=== PATIENT | male | born 1935 | race Caucasian/White ===

== ENCOUNTER 2018-07-01 17:14 | Observation (INO) ==
[2018-07-01] MEDS ORDERED: Morphine Inj 4 MG/ML Vial IV.PUSH ONE (17:47)
--- NOTE | 2018-07-01 17:52 | ED ---
HPI General Chief complaint: Urogenital-Male Stated complaint: Evac/Medical Check Up Time Seen by Provider: 07/01/18 17:47 History of Present Illness HPI Narrative: This is an 82-year-old male it was sent over from [facility] [place] [facility] with persistent hematuria. The patient is status post TURP and bladder stone removal today. The patient is currently not on any blood thinners. He reports that during a previous bladder stone removal, he is had bleeding in the past that required continuous bladder irrigation. He denies any fevers, chills. He does report suprapubic discomfort. The patient also has a history of memory loss according to and patient. He currently takes blood pressure medication and Donepezil. He reports the pain as a 4-5 out of 10 on the pain scale. There is no radiation. There is some nausea with no vomiting. Related Data Allergies Allergy/AdvReac Type Severity Reaction Status Date / Time adhesive Allergy Severe SKIN Unverified 06/16/17 21:43 SENSITIVITY bacitracin Allergy Severe rash Unverified 06/16/17 21:43 gramicidin D Allergy Severe rash Unverified 06/16/17 21:43 neomycin Allergy Severe rash Unverified 06/16/17 21:43 polymyxin B Allergy Severe rash Unverified 06/16/17 21:43 cat dander Allergy Intermediate EYES Unverified 06/16/17 21:43 SWOLLEN, WATERY, NASAL CONGESTION Review of Systems ROS: all other systems reviewed are negative Constitutional Denies chills and Denies fever(s) Eyes Reports system reviewed and no additional complaints, except as docu ENT Reports system reviewed and no additional complaints, except as docu Cardiovascular Denies chest pain and Denies dyspnea Respiratory Denies cough and Denies dyspnea Gastrointestinal Denies abdominal pain, Reports nausea and Denies vomiting Genitourinary Reports hematuria and Reports other (Suprapubic discomfort) Musculoskeletal Denies back pain, Denies numbness and Denies tingling Neurologic Reports system reviewed and no additional complaints, except as docu and Reports other (History of memory loss) Hematologic/Lymphatic Denies easy bleeding, Denies easy bruising and Reports other (Did have previous hematuria with previous bladder stone removal.) [facility] Social History Social History Substance History: No History of Abuse Second Hand Smoke Exposure: No Smoking Status: Never smoker How Often Do You Have a Drink Containing Alcohol: Monthly or less Recent Travel in [facility] within the Last 8 Weeks: No Recent Out of Country Travel within the Last 8 Weeks: No Exam Narrative Exam Narrative: GENERAL: Well-developed well-nourished male in no acute respiratory distress. SKIN: Focused skin assessment warm/dry. HEAD: Atraumatic. Normocephalic. EYES: No scleral icterus. No injection or drainage. ENT: No nasal bleeding or discharge. Mucous membranes pink and moist. NECK: Trachea midline. Supple. CARDIOVASCULAR: Sinus bradycardia with a rate in the 50s.. No murmur appreciated. RESPIRATORY: No accessory muscle use. Clear to auscultation. Breath sounds equal bilaterally. GASTROINTESTINAL: Abdomen soft, nondistended. Patient has subjective suprapubic discomfort. There is no rebound or guarding. MUSCULOSKELETAL: No obvious deformities. No clubbing. No cyanosis. No edema. NEUROLOGICAL: Awake and mildly confused. No obvious cranial nerve deficits. Motor grossly within normal limits. Normal speech. Discharge Plan Discharge Disposition Patient Disposition: 30 Still Patient Discharge Details Diagnosis: Recurrent and persistent hematuria, S/P TURP (status post transurethral resection of prostate) Physicians Team ED Provider: Zachery Bruno Primary Care Provider: Go Gunter Attending Provider: Matteo Ibrahim Discharge Interventions Interventions: Vital Signs Last Done: 07/01/18 18:41 Status ED Status: Admitted Patient Medical Decision Making [facility] Narrative Medical decision making narrative: 82-year-old male status post TURP and bladder stone removal, presents here from the surgery center with persistent hematuria. The patient is currently on continuous bladder irrigation. He was sent here by Dr. Willis for admission. Patient's been continued on continuous bladder irrigation. He has been admitted to the [facility] hospitalist team. I spoke with Dr. Jax Ibrahim who admit the patient to his service. I also spoke with Dr. Florentin Mccartney with urology who apparently is covering after hours for Dr. Willis. He will see the patient in consultation. Medical Screen Exam Complete: Yes Emergency Medical Condition: Yes Differential Diagnosis Differential Diagnosis: Persistent hematuria versus cystitis versus bleeding dyscrasia versus postoperative bladder/prostate urethral bleeding
[2018-07-01 18:46] LABS: Baso % (Auto) 0.1 % (0.0-2.0); Hematocrit 43.3 % (39.0-51.0); Hemoglobin 14.6 gm/dL (13.0-17.0); Lymph # (Auto) 0.7 th/mm3 (1.0-4.8); Lymph % (Auto) 4.7 % (9.0-44.0); Mean Corpuscular HGB Conc 33.6 % (32.0-36.0); Mean Corpuscular Hemoglobin 31.2 pg (27.0-34.0); Mean Platelet Volume 7.8 fL (7.0-11.0); Mono # (Auto) 1.1 th/mm3 (0.0-0.9); Mono % (Auto) 7.4 % (0.0-8.0); Neut # (Auto) 13.3 th/mm3 (1.8-7.7); Neut % (Auto) 87.8 % (16.0-70.0); Platelet Count 170 th/mm3 (150-450); Red Blood Count 4.66 mil/mm3 (4.50-5.90); White Blood Count 15.2 th/mm3 (4.0-11.0)
[2018-07-01 18:54] LABS: Bacteria,Urine Occasional /hpf; Bilirubin,Urine Negative (Negative); Clarity,Urine Cloudy (Clear); Color,Urine Red (Yellw/Straw); Glucose,Urine (UA) 50 mg/dL (Negative); Leukocyte Esterase,Urine Negative (Negative); Nitrite,Urine Positive (Negative); Specific Gravity,Urine 1.004 (1.002-1.035)
[2018-07-01 18:55] LABS: Activated Partial Thrombo Time 23.3 sec (24.3-30.1); Prothrombin Time 10.3 sec (9.8-11.6)
[2018-07-01 19:11] LABS: Calcium 8.5 mg/dL (8.5-10.1); Carbon Dioxide 22.2 meq/L (21.0-32.0); Potassium 4.1 meq/L (3.5-5.1)
[2018-07-01] MEDS ORDERED: Bisacodyl 10 MG Supp RECTAL PRN (20:16)
[2018-07-01] MEDS: Sod Chloride 0.9% Inj 1,000 ML IV.CONT SCH (20:43)
--- NOTE | 2018-07-01 21:28 | P.HPIM ---
History of Present Illness Primary Care Physician: Go Gunter MD History of Present Illness: 82-year-old male with a history of mild dementia, hypertension, GERD, BPH with bladder stone who presents with persistent hematuria following TURP procedure performed this morning by urologist Dr Willis. Patient denies any pain. Denies any chest pain or shortness of breath. Denies any fevers or chills. He is alert and oriented 3. He says he has had some pain meds today and it has made him feel little "funny", would rather not get any more. 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 - Medical History Medical History: Medical History (Last Updated 07/01/18 @ 21:22 by Ronal Wang MD) BPH (benign prostatic hyperplasia) Dementia GERD (gastroesophageal reflux disease) Hiatal hernia Hypertension - Family History Family History: Family History (Last Updated 07/01/18 @ 21:22 by Ronal Wang MD) Father CHF (congestive heart failure) Mother CHF (congestive heart failure) - Tobacco History Second Hand Smoke Exposure: No Smoking Status: Never smoker - Alcohol History How Often Do You Have a Drink Containing Alcohol: Monthly or less - Substance Use History Substance History: No History of Abuse - Travel History Recent Travel in the [place] Within the Last 8 Weeks: No Recent Travel Out of the Country Within the Last 8 Weeks: No - Immunization History Tetanus Immunization: <5 Years Hx Influenza Vaccine This Season: Yes Medications and Allergies Active Medications: Active Medications Al Hydroxide/Mg Hydroxide (Milk Of Magnesia Liq) 30 ml PO Q12H PRN PRN Reason: Mild Constipation Bisacodyl (Dulcolax Supp) 10 mg RECTAL DAILY PRN PRN Reason: SEVERE CONSITIPATION Sodium Chloride (Ns Inj) 1,000 mls @ 65 mls/hr IV.CONT .[id number] BOUCHRA Last Admin: 07/01/18 20:43 Dose: 65 mls/hr Lactulose (Lactulose Liq) 30 ml PO DAILY PRN PRN Reason: SEVERE CONSITIPATION Sennosides (Senokot) 17.2 mg PO Q12H PRN PRN Reason: Moderate Constipation Allergies Allergy/AdvReac Type Severity Reaction Status Date / Time adhesive Allergy Severe SKIN Unverified 06/16/17 21:43 SENSITIVITY bacitracin Allergy Severe rash Unverified 06/16/17 21:43 gramicidin D Allergy Severe rash Unverified 06/16/17 21:43 neomycin Allergy Severe rash Unverified 06/16/17 21:43 polymyxin B Allergy Severe rash Unverified 06/16/17 21:43 cat dander Allergy Intermediate EYES Unverified 06/16/17 21:43 SWOLLEN, WATERY, NASAL CONGESTION Home Medications Medication Instructions Recorded Confirmed Type donepezil 5 mg PO DAILY 07/01/18 07/01/18 History lisinopril 5 mg PO DAILY 07/01/18 07/01/18 History pantoprazole 40 mg PO HS 07/01/18 07/01/18 History tamsulosin 0.4 mg PO DAILY 07/01/18 07/01/18 History Exam Vital signs: Vital Signs 07/01/18 17:45 07/01/18 18:41 07/01/18 19:11 Temperature 98 F Pulse Rate 58 L 56 L 58 L Respiratory Rate 15 15 16 Blood Pressure 134/72 136/76 104/65 Pulse Oximetry 98 95 95 07/01/18 20:00 07/01/18 21:00 Temperature Pulse Rate 54 L 53 L Respiratory Rate 16 16 Blood Pressure 119/65 119/56 L Pulse Oximetry 95 95 Intake & Output 07/01/18 07/01/18 07/02/18 06:59 18:59 06:59 Weight 89.811 kg Other: Bladder Irrigation Fluid - Amount Instilled 3-way Urethral 1,800 Bladder Irrigation Fluid - Amount Drained 3-way Urethral 700 Narrative: GENERAL: Patient lying in bed. Appears comfortable. He is alert and oriented 3. SKIN: Warm and dry. HEAD: Atraumatic. Normocephalic. EYES: Pupils equal and round. No scleral icterus. No injection or drainage. ENT: No nasal bleeding or discharge. Mucous membranes pink and moist. NECK: Trachea midline. No JVD. CARDIOVASCULAR: Regular rate and rhythm. RESPIRATORY: No accessory muscle use. Clear to auscultation. Breath sounds equal bilaterally. GASTROINTESTINAL: Abdomen soft, non-tender, nondistended. Hepatic and splenic margins not palpable. MUSCULOSKELETAL: Extremities without clubbing, cyanosis, or edema. No obvious deformities. NEUROLOGICAL: Awake and alert. No obvious cranial nerve deficits. Motor grossly within normal limits. Five out of 5 muscle strength in the arms and legs. Normal speech. PSYCHIATRIC: Appropriate mood and affect; insight and judgment normal. Results - Labs CBC & Chem 7: 07/01/18 18:15 07/01/18 18:15 Labs: Short CBC 07/01/18 Range/Units 18:15 WBC 15.2 H (4.0-11.0) th/mm3 Hgb 14.6 (13.0-17.0) gm/dL Hct 43.3 (39.0-51.0) % Plt Count 170 (150-450) th/mm3 BMP 07/01/18 18:15 Sodium 136 Potassium 4.1 Chloride 105 Carbon Dioxide 22.2 BUN 22 H Creatinine 1.50 H Calcium 8.5 Urine 07/01/18 Range/Units 18:15 Urine Color Red (Yellw/Straw) Urine Clarity Cloudy H (Clear) Urine pH 6.0 (5.0-8.5) Ur Specific [place] 1.004 (1.002-1.035) Urine Protein 30 H (Neg-Trace) mg/dL Urine Glucose (UA) 50 (Negative) mg/dL Caprini VTE Risk Assessment Caprini VTE Risk Assessment: Moderate/High Risk (score >= 2) VTE Pharmacological Exception Reason: Hemorrhage Caprini Risk Assessment Model: Point Value = 1 Point Value = 2 Point Value = 3 Point Value = 5 Age 41-60 Minor surgery BMI > 25 kg/m2 Swollen legs Varicose veins or History of unexplained or recurrent spontaneous Oral contraceptives or hormone replacement Sepsis (< 1 month) Serious lung disease, including pneumonia (< 1 month) Abnormal pulmonary function Acute myocardial infarction Congestive heart failure (< 1 month) History of inflammatory bowel disease Medical patient at bed rest Age 61-74 Arthroscopic surgery Major open surgery (> 45 min) Laparoscopic surgery (> 45 min) Malignancy Confined to bed (> 72 hours) Immobilizing plaster cast Central venous access Age >= 75 History of VTE Family history of VTE Factor V Leiden Prothrombin [id number] Lupus anticoagulant Anticardiolipin antibodies Elevated serum homocysteine Heparin-induced thrombocytopenia Other congenital or acquired thrombophilia Stroke (< 1 month) Elective arthroplasty Hip, pelvis, or leg fracture Acute spinal cord injury (< 1 month) Prophylaxis Regimen: Total Risk Factor Score Risk Level Prophylaxis Regimen 0-1 Low Early ambulation 2 Moderate Order ONE of the following: *Sequential Compression Device (SCD) *Heparin 5000 units SQ BID 3-4 Higher Order ONE of the following medications: *Heparin 5000 units SQ TID *Enoxaparin/Lovenox 40 mg SQ daily (WT < 150 kg, CrCl > 30 mL/min) *Enoxaparin/Lovenox 30 mg SQ daily (WT < 150 kg, CrCl > 10-29 mL/min) *Enoxaparin/Lovenox 30 mg SQ BID (WT < 150 kg, CrCl > 30 mL/min) AND/OR *Sequential Compression Device (SCD) 5 or more Highest Order ONE of the following medications: *Heparin 5000 units SQ TID (Preferred with Epidurals) *Enoxaparin/Lovenox 40 mg SQ daily (WT < 150 kg, CrCl > 30 mL/min) *Enoxaparin/Lovenox 30 mg SQ daily (WT < 150 kg, CrCl > 10-29 mL/min) *Enoxaparin/Lovenox 30 mg SQ BID (WT < 150 kg, CrCl > 30 mL/min) AND *Sequential Compression Device (SCD) Assessment and Plan - Plan //Benign prostatic hyperplasia //Persistent hematuria following TURP -Continue Flomax. -Urology has been consulted. Continue on bladder irrigation. //Leukocytosis. //Possible UTI. White blood cells 15. Likely secondary to stress numerous red blood cells on urine, 12 white blood cells, positive bacteria. Will give dose of Rocephin. Follow-up on urine culture. //Dementia. Chronic. Continue home medication //Hypertension. Chronic. Blood pressure acceptable. Continue home medication and monitor. //GERD. Chronic. Continue PPI. Discussed Condition With: Patient, nurse, Dr. Ibrahim
[2018-07-02] MEDS: Lisinopril 5 MG Tablet PO SCH (08:48)
[2018-07-02] MEDS: Sod Chloride 0.9% Inj 1,000 ML IV.CONT SCH (11:56)
--- NOTE | 2018-07-02 12:10 | P.PN ---
Subjective Interval history: In bed says he feels better . Some blood at the catheter tip. Urine is orange in color. Complains of suprapubic pressure. Complaints of right sided back pain. No fever or chills. No n/v/d/c. No tachycardia. Says he can't sleep at night. Physical Exam Vital signs: Vital Signs 07/01/18 17:45 07/01/18 18:41 07/01/18 19:11 Temperature 98 F Pulse Rate 58 L 56 L 58 L Respiratory Rate 15 15 16 Blood Pressure 134/72 136/76 104/65 Pulse Oximetry 98 95 95 07/01/18 20:00 07/01/18 21:00 07/02/18 00:00 Temperature 97.2 F L Pulse Rate 54 L 53 L 57 L Respiratory Rate 16 16 18 Blood Pressure 119/65 119/56 L 116/61 Pulse Oximetry 95 95 97 07/02/18 04:00 07/02/18 08:00 Temperature 97.4 F L 97.2 F L Pulse Rate 60 61 Respiratory Rate 19 17 Blood Pressure 120/67 142/77 H Pulse Oximetry 96 97 Intake & Output 07/01/18 07/02/18 07/02/18 18:59 06:59 18:59 Intake Total 900 / 900 1000 / 1000 Output Total 900 / 900 3800 / 3800 Balance 0 / 0 -2800 / -2800 Weight 89.811 kg 90.5 kg Intake: IV 100 / 100 1000 / 1000 NS Inj 1,000 ML @ 65 mls/hr IV. 1000 / 1000 CONT .[id number] BOUCHRA Rx#:[id number] Rocephin Inj 1,000 MG In NS Inj 100 / 100 100 ML @ 200 mls/hr IV.SIG Q24H BOUCHRA Rx#:[id number] Oral 800 / 800 Output: Urine Amount (Catheter) 900 / 900 3800 / 3800 3-way Urethral 900 / 900 3800 / 3800 Other: Bladder Irrigation Fluid - Amount Instilled 3-way Urethral 6,900 600 Bladder Irrigation Fluid - Amount Drained 3-way Urethral 7,800 1,250 Date of Last Bowel Movement 07/01/18 07/01/18 Narrative: GENERAL: Patient lying in bed. Appears comfortable. He is alert and oriented 3. CARDIOVASCULAR: Regular rate and rhythm. RESPIRATORY: No accessory muscle use. Clear to auscultation. Breath sounds equal bilaterally. GASTROINTESTINAL: Abdomen soft, non-tender, nondistended. Hepatic and splenic margins not palpable. MUSCULOSKELETAL: Extremities without clubbing, cyanosis, or edema. No obvious deformities. : Urinary cath in place with orange urine, Blood at the tip of the catheter. NEUROLOGICAL: Awake and alert. No obvious cranial nerve deficits. Motor grossly within normal limits. Five out of 5 muscle strength in the arms and legs. Normal speech. PSYCHIATRIC: Appropriate mood and affect; insight and judgment normal. - Urinary Catheter Management 3-way Urethral Cath placed during this visit: yes Reason for continuing: Gross Hematuria Insertion date: 07/01/18 Results - Labs CBC & Chem 7: 07/01/18 18:15 07/01/18 18:15 Laboratory Results - last 24 hr 07/01/18 07/01/18 07/01/18 18:15 18:15 18:15 WBC 15.2 H RBC 4.66 Hgb 14.6 Hct 43.3 MCV 93.0 MCH 31.2 MCHC 33.6 RDW 13.0 Plt Count 170 MPV 7.8 Neut % (Auto) 87.8 H Lymph % (Auto) 4.7 L [place] % (Auto) 7.4 Eos % (Auto) 0.0 Baso % (Auto) 0.1 Neut # (Auto) 13.3 H Lymph # (Auto) 0.7 L [place] # (Auto) 1.1 H Eos # (Auto) 0.0 Baso # (Auto) 0.0 WBC Differential . Differential Comment Auto diff final PT 10.3 INR 1.0 APTT 23.3 L Sodium 136 Potassium 4.1 Chloride 105 Carbon Dioxide 22.2 Anion Gap 9 BUN 22 H Creatinine 1.50 H Estimated GFR 45 L Random Glucose 135 H Calcium 8.5 Urine Color Urine Clarity Urine pH Ur Specific [place] Urine Protein Urine Glucose (UA) Urine Ketones Urine Occult Blood Urine Nitrate Urine Bilirubin Urine Urobilinogen Ur Leukocyte Esterase Urine RBC Urine WBC Urine Bacteria Micro UA Comment Ur Microscopic Review Urine Culture Comments 07/01/18 18:15 WBC RBC Hgb Hct MCV MCH MCHC RDW Plt Count MPV Neut % (Auto) Lymph % (Auto) [place] % (Auto) Eos % (Auto) Baso % (Auto) Neut # (Auto) Lymph # (Auto) [place] # (Auto) Eos # (Auto) Baso # (Auto) WBC Differential Differential Comment PT INR APTT Sodium Potassium Chloride Carbon Dioxide Anion Gap BUN Creatinine Estimated GFR Random Glucose Calcium Urine Color Red Urine Clarity Cloudy H Urine pH 6.0 Ur Specific [place] 1.004 Urine Protein 30 H Urine Glucose (UA) 50 Urine Ketones Negative Urine Occult Blood Moderate H Urine Nitrate Positive H Urine Bilirubin Negative Urine Urobilinogen Less than 2 Ur Leukocyte Esterase Negative Urine RBC Urine WBC 12 H Urine Bacteria Occasional H Micro UA Comment Cath-culture ind Ur Microscopic Review Not Reportable Urine Culture Comments Cath-cult indicated Assessment and Plan - Plan Benign prostatic hyperplasia Persistent hematuria following TURP -Continue Flomax. -Urology has been consulted. Continue on bladder irrigation. - Monitor urine OP - Continue Rocephin IV abx Leukocytosis. Possible UTI. White blood cells 15K on admission. Likely secondary to stress numerous red blood cells on urine, 12 white blood cells, positive bacteria. Continue IV abx Rocephin. Urine culture pending Dementia. Chronic. Continue home medication Hypertension. Chronic. Blood pressure acceptable. Continue home medication and monitor. GERD. Chronic. Continue PPI. Insomnia: start melatonin Discussed Condition With: Patient, nurse DC plan : when improves and cleared by urology
--- NOTE | 2018-07-02 12:52 | XR ---
EXAM DATE: 07/02/2018 12:49 PM EDT AGE/SEX: 82 years / Male INDICATIONS: Shortness of breath and right, lower chest pain. CLINICAL DATA: This is the patient's subsequent encounter. Patient reports that signs and symptoms h ave been present for 3 days and indicates a pain score of 3/10. MEDICAL/SURGICAL HISTORY: . Pulmonary thrombosis. Hiatal hernia. . Hernia repair. COMPARISON: No prior exams available for comparison. FINDINGS: Scattered bibasilar atelectasis and/or infiltrates are noted. The heart is normal. The pulmonary vasc ular pattern is normal. Mild degenerative changes and scoliosis of the thoracic spine are noted. CONCLUSION: Scattered bibasilar atelectasis and/or infiltrates. Electronically signed by: Oleksandr Lazcano MD 07/02/2018 12:51 PM EDT
--- NOTE | 2018-07-02 14:32 | P.CONURO ---
History of Present Illness Service: Urology Consult date: 07/02/18 Requesting Physician: Fina Hahn Reason for Consult: Hematuria post/op Primary Care Provider: Go Gunter MD Family Provider: Go Gunter MD History of Present Illness: 82y.o m s/p TURP yesterday by Dr Willis admitted to the hospital overnight due to hematuria and retention. He currently has 3 way hematuria garcia catheter and on CBI. Urine is clear light yellow color. He has no f/c/n/v, admits some back pain, possibly positional due to recent surgery. He has no other c/o Review of Systems All other systems reviewed negative except as stated in HPI [facility] - History History Provided By: Patient - Medical History Medical History: Medical History (Last Updated 07/01/18 @ 21:22 by Ronal Wang MD) BPH (benign prostatic hyperplasia) Dementia GERD (gastroesophageal reflux disease) Hiatal hernia Hypertension - Family History Family History: Family History (Last Updated 07/01/18 @ 21:22 by Ronal Wang MD) Father CHF (congestive heart failure) Mother CHF (congestive heart failure) - Tobacco History Second Hand Smoke Exposure: No Smoking Status: Never smoker - Alcohol History How Often Do You Have a Drink Containing Alcohol: Monthly or less - Substance Use History Substance History: No History of Abuse - Travel History Recent Travel in the [place] Within the Last 8 Weeks: No Recent Travel Out of the Country Within the Last 8 Weeks: No - Immunization History Tetanus Immunization: <5 Years Hx Influenza Vaccine This Season: Yes Medications and Allergies Active Medications: Active Medications Al Hydroxide/Mg Hydroxide (Milk Of Sraai Champagne) 30 ml PO Q12H PRN PRN Reason: Mild Constipation Bisacodyl (Dulcolax Supp) 10 mg RECTAL DAILY PRN PRN Reason: SEVERE CONSITIPATION Donepezil HCl (Aricept) 5 mg PO DAILY [facility] Last Admin: 07/02/18 08:48 Dose: 5 mg Sodium Chloride (Ns Inj) 1,000 mls @ 65 mls/hr IV.CONT .[id number] [facility] Last Infusion: 07/02/18 12:08 Dose: Infused Ceftriaxone Sodium 1,000 mg/ (Sodium Chloride) 100 mls @ 200 mls/hr IV.SIG Q24H [facility] Last Infusion: 07/02/18 02:53 Dose: Infused Lactulose (Lactulose Liq) 30 ml PO DAILY PRN PRN Reason: SEVERE CONSITIPATION Lisinopril (Prinivil) 5 mg PO DAILY [facility] Last Admin: 07/02/18 08:48 Dose: 5 mg Melatonin (Melatonin) 5 mg PO HS PRN PRN Reason: sleeping aid Pantoprazole Sodium (Protonix) 40 mg PO HS [facility] Sennosides (Senokot) 17.2 mg PO Q12H PRN PRN Reason: Moderate Constipation Tamsulosin HCl (Flomax) 0.4 mg PO DAILY [facility] Last Admin: 07/02/18 08:48 Dose: 0.4 mg Allergies Allergy/AdvReac Type Severity Reaction Status Date / Time adhesive Allergy Severe Rash, Verified 07/02/18 11:53 Localized bacitracin Allergy Severe rash Verified 07/02/18 11:53 gramicidin D Allergy Severe rash Verified 07/02/18 11:53 neomycin Allergy Severe rash Verified 07/02/18 11:53 polymyxin B Allergy Severe rash Verified 07/02/18 11:53 cat dander Allergy Intermediate EYES Verified 07/02/18 11:53 SWOLLEN, WATERY, NASAL CONGESTION Home Medications Medication Instructions Recorded Confirmed Type donepezil 5 mg PO DAILY 07/01/18 07/01/18 History lisinopril 5 mg PO DAILY 07/01/18 07/01/18 History pantoprazole 40 mg PO HS 07/01/18 07/01/18 History tamsulosin 0.4 mg PO DAILY 07/01/18 07/01/18 History Physical Exam Vital Signs - 24 hr 07/01/18 17:45 07/01/18 18:41 07/01/18 19:11 Temperature 98 F Pulse Rate 58 L 56 L 58 L Respiratory Rate 15 15 16 Blood Pressure 134/72 136/76 104/65 Pulse Oximetry 98 95 95 07/01/18 20:00 07/01/18 21:00 07/02/18 00:00 Temperature 97.2 F L Pulse Rate 54 L 53 L 57 L Respiratory Rate 16 16 18 Blood Pressure 119/65 119/56 L 116/61 Pulse Oximetry 95 95 97 07/02/18 04:00 07/02/18 08:00 07/02/18 12:00 Temperature 97.4 F L 97.2 F L 97.7 F Pulse Rate 60 61 63 Respiratory Rate 19 17 17 Blood Pressure 120/67 142/77 H 145/68 H Pulse Oximetry 96 97 97 Physical Exam: NAD RRR Clear lungs Abd soft NT Garcia is in place CBI running Laboratory Results - last 24 hr 07/01/18 07/01/18 07/01/18 18:15 18:15 18:15 WBC 15.2 H RBC 4.66 Hgb 14.6 Hct 43.3 MCV 93.0 MCH 31.2 MCHC 33.6 RDW 13.0 Plt Count 170 MPV 7.8 Neut % (Auto) 87.8 H Lymph % (Auto) 4.7 L [place] % (Auto) 7.4 Eos % (Auto) 0.0 Baso % (Auto) 0.1 Neut # (Auto) 13.3 H Lymph # (Auto) 0.7 L [place] # (Auto) 1.1 H Eos # (Auto) 0.0 Baso # (Auto) 0.0 WBC Differential . Differential Comment Auto diff final PT 10.3 INR 1.0 APTT 23.3 L Sodium 136 Potassium 4.1 Chloride 105 Carbon Dioxide 22.2 Anion Gap 9 BUN 22 H Creatinine 1.50 H Estimated GFR 45 L Random Glucose 135 H Calcium 8.5 Urine Color Urine Clarity Urine pH Ur Specific [place] Urine Protein Urine Glucose (UA) Urine Ketones Urine Occult Blood Urine Nitrate Urine Bilirubin Urine Urobilinogen Ur Leukocyte Esterase Urine RBC Urine WBC Urine Bacteria Micro UA Comment Ur Microscopic Review Urine Culture Comments 07/01/18 18:15 WBC RBC Hgb Hct MCV MCH MCHC RDW Plt Count MPV Neut % (Auto) Lymph % (Auto) [place] % (Auto) Eos % (Auto) Baso % (Auto) Neut # (Auto) Lymph # (Auto) [place] # (Auto) Eos # (Auto) Baso # (Auto) WBC Differential Differential Comment PT INR APTT Sodium Potassium Chloride Carbon Dioxide Anion Gap BUN Creatinine Estimated GFR Random Glucose Calcium Urine Color Red Urine Clarity Cloudy H Urine pH 6.0 Ur Specific [place] 1.004 Urine Protein 30 H Urine Glucose (UA) 50 Urine Ketones Negative Urine Occult Blood Moderate H Urine Nitrate Positive H Urine Bilirubin Negative Urine Urobilinogen Less than 2 Ur Leukocyte Esterase Negative Urine RBC Urine WBC 12 H Urine Bacteria Occasional H Micro UA Comment Cath-culture ind Ur Microscopic Review Not Reportable Urine Culture Comments Cath-cult indicated Microbiology 07/01/18 18:15 Urine Culture - Preliminary Catheterized Urine No growth in 24 hours Result Diagrams: 07/01/18 18:15 07/01/18 18:15 Imaging: ITS Impressions Chest X-Ray 07/02/18 00:00 CONCLUSION: Scattered bibasilar atelectasis and/or infiltrates. Assessment and Plan - Plan 82y.o M s/p TURP who developed hematuria and retention Currently managing it with 3 way garcia and CBI Hematuria is resolving - No additional intervention needed - Continue care as per primary team - Keep CBI running overnight, then close it at 6-7AM - Dr Puri will evaluate pt later tomorro afternoon and will make additional recommendations Discussed Condition With: Pt's RN and Dr Puri attending
[2018-07-02] MEDS ORDERED: Melatonin 5 MG Tablet PO PRN (21:00)
[2018-07-03] MEDS: Sod Chloride 0.9% Inj 1,000 ML IV.CONT SCH ×2 (04:54→21:25)
[2018-07-03 07:10] LABS: Baso % (Auto) 0.3 % (0.0-2.0); Eos # (Auto) 0.3 th/mm3 (0.0-0.4); Hematocrit 40.5 % (39.0-51.0); Hemoglobin 14.2 gm/dL (13.0-17.0); Lymph # (Auto) 1.5 th/mm3 (1.0-4.8); Lymph % (Auto) 13.7 % (9.0-44.0); Mean Corpuscular Hemoglobin 32.6 pg (27.0-34.0); Mean Corpuscular Volume 93.3 fL (80.0-100.0); Mean Platelet Volume 7.9 fL (7.0-11.0); Mono # (Auto) 1.2 th/mm3 (0.0-0.9); Mono % (Auto) 11.5 % (0.0-8.0); Neut # (Auto) 7.8 th/mm3 (1.8-7.7); Neut % (Auto) 71.5 % (16.0-70.0); Platelet Count 162 th/mm3 (150-450); Red Blood Count 4.34 mil/mm3 (4.50-5.90); Red Cell Distribution Width 13.2 % (11.6-17.2); White Blood Count 10.9 th/mm3 (4.0-11.0)
[2018-07-03 07:36] LABS: Calcium 8.6 mg/dL (8.5-10.1); Carbon Dioxide 24.4 meq/L (21.0-32.0)
[2018-07-03] MEDS: Lisinopril 5 MG Tablet PO SCH (09:56)
--- NOTE | 2018-07-03 10:44 | P.PN ---
Subjective Interval history: The patient is in bed. He still with the right flank pain. With bladder spasm. No more bleeding around the Paredes. Paredes with pink urine. Continue CBI per urology. Discussed with Dr. Puri. Patient denies having any fever or chills. No nausea or vomiting no diarrhea constipation. He is eating fairly well. However no much appetite. Physical Exam Vital signs: Vital Signs 07/02/18 12:00 07/02/18 16:00 07/02/18 20:00 Temperature 97.7 F 97.1 F L 97.9 F Pulse Rate 63 76 76 Respiratory Rate 17 17 20 Blood Pressure 145/68 H 135/76 161/75 H Pulse Oximetry 97 95 95 07/03/18 00:00 07/03/18 08:00 Temperature 98.0 F 97.7 F Pulse Rate 73 63 Respiratory Rate 20 17 Blood Pressure 157/72 H 188/87 H Pulse Oximetry 95 95 Intake & Output 07/02/18 07/03/18 07/03/18 18:59 06:59 18:59 Intake Total 1999 340 / 340 Output Total 79675 / 26991 300 / 300 Balance -8825 / -8825 40 / 40 Intake: IV 1999 100 / 100 NS Inj 1,000 ML @ 65 mls/hr IV. 1999 CONT .[id number] [facility] Rx#:[id number] Rocephin Inj 1,000 MG In NS Inj 100 / 100 100 ML @ 200 mls/hr IV.SIG Q24H [facility] Rx#:[id number] Oral 240 / 240 Output: Urine Amount (Catheter) 03358 / 18847 300 / 300 3-way Urethral 11863 / 84947 300 / 300 Other: Bladder Irrigation Fluid - Amount Instilled 3-way Urethral 900 10,900 Bladder Irrigation Fluid - Amount Drained 3-way Urethral 1,425 10,600 Date of Last Bowel Movement 07/01/18 07/01/18 Narrative: GENERAL: Patient lying in bed. Appears comfortable. He is alert and oriented 3. CARDIOVASCULAR: Regular rate and rhythm. RESPIRATORY: No accessory muscle use. Clear to auscultation. Breath sounds equal bilaterally. GASTROINTESTINAL: Abdomen soft, non-tender, nondistended. Hepatic and splenic margins not palpable. MUSCULOSKELETAL: Extremities without clubbing, cyanosis, or edema. No obvious deformities. : Urinary cath in place with light pink colored urine NEUROLOGICAL: Awake and alert. No obvious cranial nerve deficits. Motor grossly within normal limits. Five out of 5 muscle strength in the arms and legs. Normal speech. PSYCHIATRIC: Appropriate mood and affect; insight and judgment normal. - Urinary Catheter Management 3-way Urethral Cath placed during this visit: yes Reason for continuing: Gross Hematuria Insertion date: 07/01/18 Results - Labs CBC & Chem 7: 07/03/18 06:54 07/03/18 06:54 Laboratory Results - last 24 hr 07/03/18 07/03/18 06:54 06:54 WBC 10.9 RBC 4.34 L Hgb 14.2 Hct 40.5 MCV 93.3 MCH 32.6 MCHC 35.0 RDW 13.2 Plt Count 162 MPV 7.9 Neut % (Auto) 71.5 H Lymph % (Auto) 13.7 [place] % (Auto) 11.5 H Eos % (Auto) 3.0 Baso % (Auto) 0.3 Neut # (Auto) 7.8 H Lymph # (Auto) 1.5 [place] # (Auto) 1.2 H Eos # (Auto) 0.3 Baso # (Auto) 0.0 WBC Differential . Differential Comment Auto diff final Sodium 144 Potassium 4.0 Chloride 110 H Carbon Dioxide 24.4 Anion Gap 10 BUN 16 Creatinine 1.51 H Estimated GFR 45 L Random Glucose 103 Calcium 8.6 Microbiology 07/01/18 18:15 Catheterized Urine Urine Culture - Final No growth in 48 hours - Imaging Impressions Chest X-Ray 07/02/18 00:00 CONCLUSION: Scattered bibasilar atelectasis and/or infiltrates. Assessment and Plan - Plan Benign prostatic hyperplasia Persistent hematuria following TURP -Continue Flomax. -Urology has been consulted. - Monitor urine OP -Discussed with the Dr Puri urology, appreciate recommendations. - Continue CBI now until current bag finishes; then stop CBI per Dr Puri urology -Hand irrigate q 2-4hrs to ensure no clots -May discharge home tomorrow with catheter if urine remains light pink to clear -Please call with questions Leukocytosis. Possible UTI. White blood cells 15K on admission. Likely secondary to stress numerous red blood cells on urine, 12 white blood cells, positive bacteria. Continue IV abx Rocephin. Urine cultures negative. DC rocephyn Dementia. Chronic. Continue home medication Hypertension. Chronic. Blood pressure acceptable. Continue home medication and monitor. GERD. Chronic. Continue PPI. Insomnia: start melatonin Discussed Condition With: Patient, nurse DC plan : when improves and cleared by urology . Possible discharge tomorrow with catheter if urine remains light pink to clear for urology.
[2018-07-03] MEDS ORDERED: hydrALAZINE 10 MG Tablet PO PRN (11:15)
--- NOTE | 2018-07-03 17:01 | P.PNURO ---
Subjective Patient symptoms today: Hematuria improved, CBI slow to off with light pink urine. Patient with persistent bladder spasm and anxiety regarding the tube. Objective Vital Signs: Vital Signs 07/02/18 20:00 07/03/18 00:00 07/03/18 08:00 Temperature 97.9 F 98.0 F 97.7 F Pulse Rate 76 73 63 Respiratory Rate 20 20 17 Blood Pressure 161/75 H 157/72 H 188/87 H Pulse Oximetry 95 95 95 07/03/18 12:00 Temperature 97.5 F L Pulse Rate 76 Respiratory Rate 17 Blood Pressure 124/71 Pulse Oximetry 94 L Intake & Output 07/02/18 07/03/18 07/03/18 18:59 06:59 18:59 Intake Total 1999 340 / 340 Output Total 89787 / 24301 300 / 300 Balance -8825 / -8825 40 / 40 Intake: IV 1999 100 / 100 NS Inj 1,000 ML @ 65 mls/hr IV. 1999 CONT .[id number] [facility] Rx#:[id number] Rocephin Inj 1,000 MG In NS Inj 100 / 100 100 ML @ 200 mls/hr IV.SIG Q24H [facility] Rx#:[id number] Oral 240 / 240 Output: Urine Amount (Catheter) 40721 / 58608 300 / 300 3-way Urethral 73599 / 92529 300 / 300 Other: Bladder Irrigation Fluid - Amount Instilled 3-way Urethral 900 10,900 Bladder Irrigation Fluid - Amount Drained 3-way Urethral 1,425 10,600 Date of Last Bowel Movement 07/01/18 07/01/18 Result Diagrams: 07/03/18 06:54 07/03/18 06:54 Other Results: -Paredes in place, light pink to clear urine with no CBI -Catheter irrigates well Medications and IVs: Active Medications Generic Name Dose Route Start Last Admin Trade Name Freq PRN Reason Stop Dose Admin Al Hydroxide/Mg Hydroxide 30 ml 07/01/18 20:16 Milk Of Magnesia Liq PO Q12H PRN Mild Constipation Bisacodyl 10 mg 07/01/18 20:16 Dulcolax Supp RECTAL DAILY PRN SEVERE CONSITIPATION Donepezil HCl 5 mg 07/02/18 09:00 07/03/18 09:55 Aricept PO 5 mg DAILY [facility] Administration Hydralazine HCl 10 mg 07/03/18 11:15 Apresoline PO QID PRN sbp> 160 Sodium Chloride 1,000 mls @ 65 mls/hr 07/01/18 21:00 07/03/18 04:54 Ns Inj IV.CONT 65 mls/hr .[id number] [facility] Administration Ceftriaxone Sodium 1,000 mg/ 100 mls @ 200 mls/hr 07/01/18 22:00 07/02/18 23: 00 Sodium Chloride IV.SIG Infused Q24H [facility] Infusion Lactulose 30 ml 07/01/18 20:16 Lactulose Liq PO DAILY PRN SEVERE CONSITIPATION Lisinopril 5 mg 07/02/18 09:00 07/03/18 09:56 Prinivil PO 5 mg DAILY [facility] Administration Melatonin 5 mg 07/02/18 21:00 Melatonin PO HS PRN sleeping aid Pantoprazole Sodium 40 mg 07/02/18 21:00 07/02/18 20:35 Protonix PO 40 mg HS [facility] Administration Sennosides 17.2 mg 07/01/18 20:16 Senokot PO Q12H PRN Moderate Constipation Tamsulosin HCl 0.4 mg 07/02/18 09:00 07/03/18 09:55 Flomax PO 0.4 mg DAILY [facility] Administration Assessment and Plan - Plan -Continue CBI now until current bag finishes; then stop CBI -Hand irrigate q 2-4hrs to ensure no clots -May discharge home tomorrow with catheter if urine remains light pink to clear -Please call with questions
[2018-07-03 20:23] VITALS: RESP 18
[2018-07-04 07:27] LABS: Baso % (Auto) 0.3 % (0.0-2.0); Eos # (Auto) 0.4 th/mm3 (0.0-0.4); Eos % (Auto) 3.9 % (0.0-4.0); Hematocrit 40.9 % (39.0-51.0); Hemoglobin 14.1 gm/dL (13.0-17.0); Lymph # (Auto) 2.2 th/mm3 (1.0-4.8); Lymph % (Auto) 23.6 % (9.0-44.0); Mean Corpuscular HGB Conc 34.6 % (32.0-36.0); Mean Corpuscular Hemoglobin 32.1 pg (27.0-34.0); Mean Corpuscular Volume 92.9 fL (80.0-100.0); Mean Platelet Volume 8.3 fL (7.0-11.0); Mono # (Auto) 0.9 th/mm3 (0.0-0.9); Mono % (Auto) 9.7 % (0.0-8.0); Neut # (Auto) 5.9 th/mm3 (1.8-7.7); Neut % (Auto) 62.5 % (16.0-70.0); Platelet Count 172 th/mm3 (150-450); Red Cell Distribution Width 12.9 % (11.6-17.2); White Blood Count 9.4 th/mm3 (4.0-11.0)
[2018-07-04 07:49] LABS: Carbon Dioxide 24.4 meq/L (21.0-32.0)
[2018-07-04] MEDS: Lisinopril 5 MG Tablet PO SCH (08:35)
--- NOTE | 2018-07-04 09:16 | P.DS ---
Date of admission: 07/01/18 20:16 Primary care physician: Go Gunter MD Brief History from admission: 82-year-old male with a history of mild dementia, hypertension, GERD, BPH with bladder stone who presents with persistent hematuria following TURP procedure performed this morning by urologist Dr Willis. Patient denies any pain. Denies any chest pain or shortness of breath. Denies any fevers or chills. He is alert and oriented 3. He says he has had some pain meds today and it has made him feel little "funny", would rather not get any more. DS: Diagnosis - Discharge Diagnosis (1) Recurrent and persistent hematuria Status: Acute (2) S/P TURP (status post transurethral resection of prostate) Status: Acute DS: Summary Hospital Course: 82-year-old male with a history of mild dementia, hypertension, GERD, BPH with bladder stone who presents with persistent hematuria following TURP procedure performed this morning by urologist Dr Willis. Patient denies any pain. Denies any chest pain or shortness of breath. Denies any fevers or chills. He is alert and oriented 3. Patient with BPH and persistent hematuria following TURP continue flomax. Urology consulted. CBI per urology. Improved, cleared by uro for DC . DC home with garcia to follow up as OP for further management by urology. F./up with PC{ and consultants as OP. Benign prostatic hyperplasia Persistent hematuria following TURP -Continue Flomax. -Urology has been consulted. - Monitor urine OP -Discussed with the Dr Puri urology, appreciate recommendations. - Continue stop CBI per Dr Puri urology -Hand irrigate q 2-4hrs to ensure no clots Leukocytosis. Possible UTI. White blood cells 15K on admission. Likely secondary to stress numerous red blood cells on urine, 12 white blood cells, positive bacteria. DC IV abx Rocephin. Urine cultures negative. DC Rocephin Dementia. Chronic. Continue home medication Hypertension. Chronic. Blood pressure acceptable. Continue home medication and monitor. GERD. Chronic. Continue PPI. Insomnia: start melatonin prn - Time Spent with Patient Total time spent providing and/or coordinating discharge services: Greater than 30 minutes - Quality: VTE Deep Vein Thrombosis/Pulmonary Embolism Present on Admission: No Exam Vital signs: Vital Signs 07/03/18 12:00 07/03/18 16:00 07/03/18 20:22 Temperature 97.5 F L 97.6 F 97.5 F L Pulse Rate 76 75 76 Respiratory Rate 17 17 18 Blood Pressure 124/71 146/78 H 151/75 H Pulse Oximetry 94 L 95 95 07/04/18 00:02 07/04/18 08:00 Temperature 98.4 F 96.7 F L Pulse Rate 86 76 Respiratory Rate 18 18 Blood Pressure 160/80 H 161/87 H Pulse Oximetry 96 97 Intake & Output 07/03/18 07/04/18 07/04/18 18:59 06:59 18:59 Intake Total 960 / 960 1580 / 1580 Output Total 1500 / 1500 660 / 660 Balance -540 / -540 920 / 920 Weight 90 kg Intake: IV 1000 / 1000 NS Inj 1,000 ML @ 65 mls/hr IV. 1000 / 1000 CONT .[id number] [facility] Rx#:[id number] Oral 960 / 960 580 / 580 Output: Urine Amount (Catheter) 1500 / 1500 660 / 660 3-way Urethral 1500 / 1500 660 / 660 Other: Bladder Irrigation Fluid - Amount Instilled 3-way Urethral 2,300 2,340 Bladder Irrigation Fluid - Amount Drained 3-way Urethral 3,800 3,000 # Voids 3 Date of Last Bowel Movement 07/01/18 07/01/18 07/01/18 Narrative: GENERAL: Patient lying in bed. Appears comfortable. He is alert and oriented 3. CARDIOVASCULAR: Regular rate and rhythm. RESPIRATORY: No accessory muscle use. Clear to auscultation. Breath sounds equal bilaterally. GASTROINTESTINAL: Abdomen soft, non-tender, nondistended. Hepatic and splenic margins not palpable. MUSCULOSKELETAL: Extremities without clubbing, cyanosis, or edema. No obvious deformities. : Urinary cath in place with light pink colored urine NEUROLOGICAL: Awake and alert. No obvious cranial nerve deficits. Motor grossly within normal limits. Five out of 5 muscle strength in the arms and legs. Normal speech. PSYCHIATRIC: Appropriate mood and affect; insight and judgment normal. Results Procedures completed during hospitalization: none Labs on day of discharge: Labs from last 24 hours 07/04/18 07/04/18 06:33 06:33 WBC 9.4 RBC 4.40 L Hgb 14.1 Hct 40.9 MCV 92.9 MCH 32.1 MCHC 34.6 RDW 12.9 Plt Count 172 MPV 8.3 Neut % (Auto) 62.5 Lymph % (Auto) 23.6 [place] % (Auto) 9.7 H Eos % (Auto) 3.9 Baso % (Auto) 0.3 Neut # (Auto) 5.9 Lymph # (Auto) 2.2 [place] # (Auto) 0.9 Eos # (Auto) 0.4 Baso # (Auto) 0.0 WBC Differential . Differential Comment Auto diff final Sodium 143 Potassium 4.0 Chloride 110 H Carbon Dioxide 24.4 Anion Gap 9 BUN 19 H Creatinine 1.47 H Estimated GFR 46 L Random Glucose 88 Calcium 9.0 - Impressions ITS Impressions Chest X-Ray 07/02/18 00:00 CONCLUSION: Scattered bibasilar atelectasis and/or infiltrates. Discharge Plan - Discharge Disposition Patient Disposition: 01 Discharge Home - Discharge Condition Condition: Stable - Discharge Order Discharge Orders: Discharge Order (Routine); Ordered 07/04/18 Ordered By: Fina Hahn - Discharge Details Anticipated Discharge Date: 07/04/18 - Physicians Team Primary Care Provider: Go Gunter Attending Provider: Fina Hahn Other Providers: Grey Puri MD
[2018-07-04] MEDS: Sod Chloride 0.9% Inj 1,000 ML IV.CONT SCH (09:38)
--- NOTE | 2018-07-04 12:15 | P.DCO ---
- Physical Therapy Order: Evaluate and treat - Home Health Nursing Order: Medical education, Signs/symptoms of disease process, Medication education-adverse effect, Nursing assessment with vital signs, Paredes catheter maintenance - Certification I have seen patient Matthias Matute on 07/04/18. My clinical findings support the need for the requested home health care services because: Limited mobility due to disease progression, Deconditioned with increased weakness I certify that my clinical findings support that this patient is homebound because: Post-op weakness
[2018-07-04 12:20] VITALS: BP 143/72; PULSE 69; TEMP 97.6; O2SAT 95
== END 2018-07-04 14:24 | disposition home or self-care (01) ==
LOC: NEDA 17:14 → NEPC 17:14 → NEDA 18:46 → N07 21:38
PROVIDERS: ADMIT Hospitalist; ATTEND Hospitalist